=== PATIENT | female | born 1950 | race Caucasian/White ===

== ENCOUNTER 2016-09-19 15:30 | Outpatient (CLI) | payer MEDICARE, OTHER ==
[2016-03-07 12:43] VITALS: BP 122/66
[2016-09-19 15:47] LABS: BASOPHILS % 0.5 (0.0-1.5); EOSINOPHILS % 2.6 % (0.0-6.8); LYMPHOCYTES # 1.4 # k/uL (0.6-4.0); MEAN CORPUSCULAR HEMOGLOBIN 30.1 pg (28.0-34.0); MONOCYTES # 0.2 # k/uL (0.0-0.9); MONOCYTES % 3.6 % (0.0-11.0); NEUTROPHILS # 3.8 # k/uL (1.4-7.7)
[2016-09-19 16:19] LABS: eGFR (African) > 60; eGFR (Non-African) > 60
== END 2016-09-19 15:35 | disposition home or self-care (01) ==
LOC: LAB 15:30
PROVIDERS: ATTEND Family Medicine
DX: R39.89 Other symptoms and signs involving the genitourinary system (principal); R30.0 Dysuria
CPT/HCPCS: 80053; 80074; 82550; 85025; 87086

== ENCOUNTER 2016-09-20 09:38 | Outpatient (CLI) | payer MEDICARE, OTHER ==
[2016-03-07 12:43] VITALS: BP 122/66
--- NOTE | 2016-09-21 05:23 | Diagnostic Imaging Report ---
ALLIE RESENDEZ~ [facility] [address] [facility] [address] [place], [place]. [address] ~ ~ ~ ~ Report Submission Date: Sep 20, 2016 9:55:20 PM CDT Patient ~ Study Name: CRISTINE PORRAS ~ Date: Sep 20, 2016 11:41:26 AM CDT ~ Modality Type: CT\SR Gender: F ~ Description: CT ABD & PELVIS W/ CON : 46 ~ Institution: [facility] Physician: ALLIE RESENDEZ ~ ~ ~ ~ CT abdomen and pelvis with contrast CLINICAL HISTORY:~ PT STATES GROSS HEMATURIA AND LOWER LEFT SIDED ABDOMINAL AND BACK PAIN X ONE WEEK. (Hx) / LOWER ABDOMINAL PAIN (DICOM Hx) TECHNIQUE: 5 mm contiguous axial images of the abdomen and pelvis with IV contrast.~~ With ; INTRAVENOUS- 90mL OMNI ORAL- WATER/OMNI 300 ~~ FINDINGS: Comparison is made to prior CT scan. The liver unremarkable for a small hypodensity in 9 mm in the right hepatic lobe on image 78. The gallbladder is mildly distended but otherwise unremarkable. The spleen adrenal glands are unremarkable. The kidneys are unremarkable. Mild dilatation common bile duct. The pancreatic duct dilated. Pancreatic head demonstrates fullness relative to the body which is atrophic. Uterus is unremarkable. Urinary bladder is unremarkable. No pathologic abdominal pelvic lymphadenopathy. Small mesenteric lymph nodes are noted, which are nonspecific. The bowel loops are nondistended. No ascites. No pneumoperitoneum. Colonic diverticula are noted without diverticulitis. Impression: 1. Atrophic pancreatic body with a dilated pancreatic duct. Pancreatic head is enlargement no discrete mass identified. An underlying mass is not excluded on this study. MRI pancreas protocol or CT pancreas protocol is recommended for further evaluation. 2. Small hypodensity in the right hepatic lobe, indeterminate. This also be better characterized on MRI. 3. Left colon diverticulosis without diverticulitis. ~ Electronically signed on Sep 20, 2016 9:55:20 PM CDT by: Kike LINDO
== END 2016-09-20 09:40 ==
LOC: RAD 09:38
PROVIDERS: ATTEND Family Medicine
DX: R10.30 Lower abdominal pain, unspecified (principal); R94.5 Abnormal results of liver function studies
CPT/HCPCS: 74177; A9698; Q9966

== ENCOUNTER 2019-03-05 10:20 | Outpatient (CLI) | payer OTHER ==
[2016-03-07 12:43] VITALS: BP 122/66
[2019-03-05 10:58] LABS: eGFR (Non-African) > 60
== END 2019-03-05 10:24 ==
LOC: LAB 10:20
PROVIDERS: ATTEND Family Medicine
DX: M85.80 Other specified disorders of bone density and structure, unspecified site (principal)
CPT/HCPCS: 36415; 80048; 82306